=== PATIENT | male | born 1995 | race Hispanic/Latino ===

== ENCOUNTER 2019-08-13 16:04 | Emergency (ER) | payer OTHER, SELFPAY ==
[2019-08-13 16:10] VITALS: BP 119/71; PULSE 86; RESP 16; TEMP 36.8; O2SAT 100; BMI 22.6
[2019-08-13 16:34] VITALS: BP 138/63; PULSE 82; RESP 22; O2SAT 100
--- NOTE | 2019-08-13 16:45 | ED.SEIZURE ---
HPI - Seizure <Anneliese Rao DO - Last Filed: 08/13/19 20:10> General Chief Complaint: Seizure Stated Complaint: SEIZURES HEADACHE VOMITING Time Seen by Provider: 08/13/19 16:44 Source: patient Mode of arrival: Ambulatory Limitations: no limitations History of Present Illness HPI Narrative: 24-year-old male comes in with complaint of seizures, headache and vomiting. Patient states he thinks he had 1 maybe 2 seizures today or in less than 12-24 hours. Patient states he did bite his tongue he states he has had headache. No vision changes. He also has left shoulder pain. I states he has been groggy and felt off all day. He had vomiting this morning but no longer but feels nauseated. He denies any chest pain or shortness of breath. He denies any abdominal pain. No back or neck pain. No loss of bowel or bladder control. Patient has a history seizure disorder he does take his medications regularly although he did not take his morning medication or his evening medication. Patient states his last seizure was probably about a month ago. The head is medications increased about 2 3 months ago because of continued seizures. He does follow regularly with neurologist he denies other medical issues. He denies fevers, no recent respiratory infections. Related Data Home Medications Medication Instructions Recorded Confirmed buspirone 30 mg PO BID 08/13/19 08/13/19 lacosamide [Vimpat] 100 mg PO QPM 08/13/19 08/13/19 lacosamide [Vimpat] 200 mg PO DAILY 08/13/19 08/13/19 zonisamide 300 mg PO DAILY 08/13/19 08/13/19 Allergies Allergy/AdvReac Type Severity Reaction Status Date / Time No Known Drug Allergies Allergy Verified 08/13/19 16:10 Review of Systems <Anneliese Rao DO - Last Filed: 08/13/19 20:10> Review of Systems ROS Unobtainable: All systems reviewed & are unremarkable except as noted in HPI and below Patient History <Anneliese Rao DO - Last Filed: 08/13/19 20:10> Medical History (Updated 08/13/19 @ 19:49 by Anneliese Rao DO) Seizure disorder (Acute) Social History Smoking Status: Never smoker Smoking Status: Never smoker Substance Use Type: does not use Exam <Anneliese Rao DO - Last Filed: 08/13/19 20:10> Narrative Exam Narrative: GEN: well nourished, well appearing male, alert and oriented x 3, patient appears to be in mild distress. HEENT: Atraumatic, pupils are equal round reactive to light, extraocular movements are intact, nares are clear, TMs are clear with no fluid, there is no conjunctival pallor. Throat is clear without any exudates, erythema, tonsillar enlargement or uvular deviation patient has superficial laceration of his as well as tongue consistent with bite. HEART: Regular rate and rhythm without murmur, clicks, rubs. Pulses are equal in upper and lower extremities LUNGS:Lungs clear to auscultation, no wheezes, rales, crackles, chest moves symmetrically ABD:bowel sounds normal, soft, non-tender, no guarding, rebound, rigidity, no masses noted, no hepatosplenomegaly :No CVA tenderness MSCL: Non-tender, no muscle atrophy, muscles strength 5/5 upper and lower extremities, full range of motion NEURO:CN 2-12 intact, sensation normal, full range of motion. SKIN: No rash or skin changes. Initial Vital Signs Initial Vital Signs: Vital Signs Temperature 98.2 F 08/13/19 16:10 Pulse Rate 86 08/13/19 16:10 Respiratory Rate 16 08/13/19 16:10 Blood Pressure 119/71 08/13/19 16:10 Pulse Oximetry 100 08/13/19 16:10 <Tien Morfin DO - Last Filed: 08/14/19 00:41> Initial Vital Signs Initial Vital Signs: Vital Signs Temperature 98.2 F 08/13/19 16:10 Pulse Rate 86 08/13/19 16:10 Respiratory Rate 16 08/13/19 16:10 Blood Pressure 119/71 08/13/19 16:10 Pulse Oximetry 100 08/13/19 16:10 Course <Anneliese Rao DO - Last Filed: 08/13/19 20:10> Orders Ordered: ED Orders 08/13/19 16:47 CT head/brain wo con Stat 08/13/19 17:20 Basic Metabolic Panel Stat Complete Blood Count AUTO DIFF Stat Magnesium Stat Prolactin Stat 08/13/19 17:32 XR shoulder LT min 2V Stat 08/13/19 19:02 EKG-12 Lead Routine 08/13/19 19:54 XR elbow LT min 3V Stat XR shoulder LT 1V Stat 08/13/19 20:45 Urinalysis and Microscopic Stat Urine Drug Screen, Rapid Stat Discontinued Medications Sodium Chloride (Normal Saline 0.9%) 1,000 mls @ 1,000 mls/hr IV BOLUS PRN PRN Reason: Fluid replacement Last Infusion: 08/13/19 22:03 Dose: 0 mls/hr Documented by: Admin: 08/13/19 20:03 Dose: 1,000 mls/hr Documented by: AGUSTIN Ketorolac Tromethamine (Toradol) 30 mg IV NOW ONE Stop: 08/13/19 19:55 Last Admin: 08/13/19 20:02 Dose: 30 mg Documented by: AGUSTIN Vital Signs Vital signs: Vital Signs - 8 hr 08/13/19 18:46 08/13/19 22:08 Pulse Rate 90 72 Respiratory Rate 14 14 Blood Pressure 132/72 Blood Pressure [Right Arm] 130/70 Pulse Oximetry 99 99 <Tien Morfin, DO - Last Filed: 08/14/19 00:41> Orders Ordered: ED Orders 08/13/19 16:47 CT head/brain wo con Stat 08/13/19 17:20 Basic Metabolic Panel Stat Complete Blood Count AUTO DIFF Stat Magnesium Stat Prolactin Stat 08/13/19 17:32 XR shoulder LT min 2V Stat 08/13/19 19:02 EKG-12 Lead Routine 08/13/19 19:54 XR elbow LT min 3V Stat XR shoulder LT 1V Stat 08/13/19 20:45 Urinalysis and Microscopic Stat Urine Drug Screen, Rapid Stat Discontinued Medications Sodium Chloride (Normal Saline 0.9%) 1,000 mls @ 1,000 mls/hr IV BOLUS PRN PRN Reason: Fluid replacement Last Infusion: 08/13/19 22:03 Dose: 0 mls/hr Documented by: Admin: 08/13/19 20:03 Dose: 1,000 mls/hr Documented by: AGUSTIN Ketorolac Tromethamine (Toradol) 30 mg IV NOW ONE Stop: 02/24/20 19:55 Last Admin: 08/13/19 20:02 Dose: 30 mg Documented by: AGUSTIN Vital Signs Vital signs: Vital Signs - 8 hr 08/13/19 18:46 08/13/19 22:08 Pulse Rate 90 72 Respiratory Rate 14 14 Blood Pressure 132/72 Blood Pressure [Right Arm] 130/70 Pulse Oximetry 99 99 MDM - Seizure <Annelieseiam RaoDO - Last Filed: 08/13/19 20:10> Lab Data Attestation: I reviewed the patient's lab results. Result diagrams: 08/13/19 17:20 08/13/19 17:20 Labs: Lab Results 08/13/19 08/13/19 08/13/19 Range/Units 17:20 17:20 20:45 WBC 18.7 H (4.5-11.0) X10^3/uL RBC 4.78 (4.5-5.9) X10^6/uL Hgb 15.5 (13.5-17.5) g/dL Hct 44.2 (41-53) % MCV 92.3 (80-100) fL MCH 32.5 (26-34) PG MCHC 35.2 (30-36) % RDW 12.9 (11.6-14.8) % Plt Count 198 (150-400) X10^3/uL Neut % (Auto) 89.1 H (50-75) % Lymph % (Auto) 4.9 L (25-40) % [place] % (Auto) 5.8 (3-14) % Eos % (Auto) 0.0 L (2-4) % Baso % (Auto) 0.2 (0-2) % Neut # (Auto) 48766 H (4268-3210) /uL Lymph # (Auto) 900 L (9537-0516) /uL [place] # (Auto) 1100 H (0-900) /uL Eos # (Auto) 0 (0-450) /uL Baso # (Auto) 0 (0-100) /uL Sodium 139 (137-145) mmol/L Potassium 3.8 (3.4-5.1) mmol/L Chloride 102 (98-107) mmol/L Carbon Dioxide 21 L (22-32) mmol/L BUN 14 (9-20) mg/dL Creatinine 1.20 (0.66-1.25) mg/dL Estimated GFR > 60.0 (>60) mL/min BUN/Creatinine Ratio 11.7 (6-22) Glucose 141 H (70-100) mg/dL Calcium 10.1 (8.4-10.2) mg/dL Magnesium 2.1 (1.6-2.3) mg/dL Prolactin 9.9 (3.7-17.9) ng/mL Urine Color Yellow Urine Appearance Clear Urine pH 5.0 (4.5-8.0) Ur Specific [place] 1.020 (1.000-1.035) Urine Protein Negative (Negative) Urine Glucose (UA) Negative (Negative) g/dL Urine Ketones Trace H (NEGATIVE) Urine Occult Blood 1+ H (Negative) Urine Nitrate Negative (Negative) Urine Bilirubin Negative (NEGATIVE) Urine Urobilinogen 0.2 (0.2) E.U./dL Ur Leukocyte Esterase Negative (NEGATIVE) Urine RBC None seen (0-5/HPF) Urine WBC None seen (0-5/HPF) Uric Acid Crystals Many H (None) Other Crystals Ca sultafe Urine Bacteria None seen (None) Ur Culture Indicated? Cult not indicated U Opiates 300ng/mL cut (Negative) Ur Oxycodone Screen (Negative) Urine Methadone Screen (Negative) Ur Barbiturates Screen (Negative) U Tricyclic Antidepress (Negative) Ur Phencyclidine Scrn (Negative) Ur Amphetamines Screen (Negative) U Methamphetamines Scrn (Negative) Ur MDMA Scrn (Ecstasy) (Negative) U Benzodiazepines Scrn (Negative) Urine Cocaine Screen (Negative) U Marijuana (THC) Screen (Negative) 08/13/19 Range/Units 20:45 WBC (4.5-11.0) X10^3/uL RBC (4.5-5.9) X10^6/uL Hgb (13.5-17.5) g/dL Hct (41-53) % MCV (80-100) fL MCH (26-34) PG MCHC (30-36) % RDW (11.6-14.8) % Plt Count (150-400) X10^3/uL Neut % (Auto) (50-75) % Lymph % (Auto) (25-40) % [place] % (Auto) (3-14) % Eos % (Auto) (2-4) % Baso % (Auto) (0-2) % Neut # (Auto) (5626-8538) /uL Lymph # (Auto) (7123-9453) /uL [place] # (Auto) (0-900) /uL Eos # (Auto) (0-450) /uL Baso # (Auto) (0-100) /uL Sodium (137-145) mmol/L Potassium (3.4-5.1) mmol/L Chloride (98-107) mmol/L Carbon Dioxide (22-32) mmol/L BUN (9-20) mg/dL Creatinine (0.66-1.25) mg/dL Estimated GFR (>60) mL/min BUN/Creatinine Ratio (6-22) Glucose (70-100) mg/dL Calcium (8.4-10.2) mg/dL Magnesium (1.6-2.3) mg/dL Prolactin (3.7-17.9) ng/mL Urine Color Urine Appearance Urine pH (4.5-8.0) Ur Specific [place] (1.000-1.035) Urine Protein (Negative) Urine Glucose (UA) (Negative) g/dL Urine Ketones (NEGATIVE) Urine Occult Blood (Negative) Urine Nitrate (Negative) Urine Bilirubin (NEGATIVE) Urine Urobilinogen (0.2) E.U./dL Ur Leukocyte Esterase (NEGATIVE) Urine RBC (0-5/HPF) Urine WBC (0-5/HPF) Uric Acid Crystals (None) Other Crystals Urine Bacteria (None) Ur Culture Indicated? U Opiates 300ng/mL cut Negative (Negative) Ur Oxycodone Screen Negative (Negative) Urine Methadone Screen Negative (Negative) Ur Barbiturates Screen Negative (Negative) U Tricyclic Antidepress Negative (Negative) Ur Phencyclidine Scrn Negative (Negative) Ur Amphetamines Screen Negative (Negative) U Methamphetamines Scrn Negative (Negative) Ur MDMA Scrn (Ecstasy) Negative (Negative) U Benzodiazepines Scrn Negative (Negative) Urine Cocaine Screen Negative (Negative) U Marijuana (THC) Screen Negative (Negative) Imaging Data shoulder xray: Radiologist's Impression: [address] [address] XRay Report Signed Patient: RobertoNilay VMR#: [id number] : 1995Acct:[id number] Age/Sex: MDate of Service: 08/13/19 Loc: ED Accession Number: [id number] Procedure: XR shoulder LT min 2V Ordering Provider: Anneliese Rao D.O. PROCEDURE: XR SHOULDER LT MIN 2V INDICATIONS: left shoulder pain, s/p seizure TECHNIQUE: 3 views of the shoulder were acquired. COMPARISON: None. FINDINGS: Bones: Evaluation limited due to a suboptimal Y view. Posterior dislocation cannot be fully excluded. There is mild bony irregularity within the inferior aspect of the glenoid. Visualized ribs appear intact. Soft tissues: No suspicious soft tissue calcifications. IMPRESSION: 1. Slightly limited study due to patient's difficulty in positioning. If there is clinical suspicion for posterior shoulder dislocation, recommend an axillary view or repeat Y-view. 2. Mild irregularity along the inferior aspect the glenoid may reflect sequela of prior shoulder dislocation. If clinical concern persists, further evaluation may be obtained with cross-sectional imaging. Dictated by: Antonio Iraheta M.D. on 08/13/2019 at 19:38 Approved by: Antonio Iraheta M.D. on 08/13/2019 at 19:42 CT scan - head: Radiologist's Impression: [place] [address] CT Scan Report Signed Patient: Nilay Mejia R#: [id number] : 1995Acct:[id number] Age/Sex: MDate of Service: 08/13/19 Loc: ED Accession Number: [id number] Procedure: CT head/brain wo con Ordering Provider: Anneliese Rao D.O. PROCEDURE: CT HEAD/BRAIN WO CON INDICATIONS: seizure, has seizure history. TECHNIQUE: Noncontrast 4.5 mm thick angled axial sections acquired from the foramen magnum to the vertex, with coronal and sagittal reformats. For radiation dose reduction, the following was used: automated exposure control, adjustment of mA and/or kV according to patient size. COMPARISON: None. FINDINGS: Image quality: Excellent. CSF spaces: Basal cisterns are patent. No extra-axial fluid collections. Ventricles are normal in size and shape. Brain: No midline shift. No intracranial masses or hemorrhage. Schaffer-white matter interface is normal. Skull and face: Calvarium and visualized facial bones are intact, without suspicious lesions. Sinuses: Visualized sinuses and mastoids are clear. IMPRESSION: Allen seizure activity is not seen, no trauma from seizures found. Dictated by: Naman Mlaik M.D. on 08/13/2019 at 17:17 Approved by: Naman Malik M.D. on 08/13/2019 at 17:17 ECG Data Attestation: I personally reviewed and interpreted this ECG as follows: Prior ECG tracings: not available for review Interpretation: Sinus rhythm with sinus arrhythmia rate of 79 P are 170 QRS of 96 and QTC of 385. LVH. No priors for comparison MDM Narrative Medical decision making narrative: Patient's x-ray is equivocal clinically I do not any physical deformity but patient does not wish to move her shoulder nor his elbow at this point so elbow x-ray was added on with repeat view of the shoulder. Patient was given Toradol. Waiting for urine sample and patient was signed out to Dr. Morfin while this is pending. If patient is otherwise medically cleared discussed would likely benefit from a chat with his neurologist to see if his medication dosing needs to be changed but has been asymptomatic and does not seem to be in status epilepticus at this point. <Tien Morfin, DO - Last Filed: 08/14/19 00:41> Lab Data Labs: Lab Results 08/13/19 08/13/19 08/13/19 Range/Units 17:20 17:20 20:45 WBC 18.7 H (4.5-11.0) X10^3/uL RBC 4.78 (4.5-5.9) X10^6/uL Hgb 15.5 (13.5-17.5) g/dL Hct 44.2 (41-53) % MCV 92.3 (80-100) fL MCH 32.5 (26-34) PG MCHC 35.2 (30-36) % RDW 12.9 (11.6-14.8) % Plt Count 198 (150-400) X10^3/uL Neut % (Auto) 89.1 H (50-75) % Lymph % (Auto) 4.9 L (25-40) % [place] % (Auto) 5.8 (3-14) % Eos % (Auto) 0.0 L (2-4) % Baso % (Auto) 0.2 (0-2) % Neut # (Auto) 23866 H (9832-0448) /uL Lymph # (Auto) 900 L (0896-5192) /uL [place] # (Auto) 1100 H (0-900) /uL Eos # (Auto) 0 (0-450) /uL Baso # (Auto) 0 (0-100) /uL Sodium 139 (137-145) mmol/L Potassium 3.8 (3.4-5.1) mmol/L Chloride 102 (98-107) mmol/L Carbon Dioxide 21 L (22-32) mmol/L BUN 14 (9-20) mg/dL Creatinine 1.20 (0.66-1.25) mg/dL Estimated GFR > 60.0 (>60) mL/min BUN/Creatinine Ratio 11.7 (6-22) Glucose 141 H (70-100) mg/dL Calcium 10.1 (8.4-10.2) mg/dL Magnesium 2.1 (1.6-2.3) mg/dL Prolactin 9.9 (3.7-17.9) ng/mL Urine Color Yellow Urine Appearance Clear Urine pH 5.0 (4.5-8.0) Ur Specific [place] 1.020 (1.000-1.035) Urine Protein Negative (Negative) Urine Glucose (UA) Negative (Negative) g/dL Urine Ketones Trace H (NEGATIVE) Urine Occult Blood 1+ H (Negative) Urine Nitrate Negative (Negative) Urine Bilirubin Negative (NEGATIVE) Urine Urobilinogen 0.2 (0.2) E.U./dL Ur Leukocyte Esterase Negative (NEGATIVE) Urine RBC None seen (0-5/HPF) Urine WBC None seen (0-5/HPF) Uric Acid Crystals Many H (None) Other Crystals Ca sultafe Urine Bacteria None seen (None) Ur Culture Indicated? Cult not indicated U Opiates 300ng/mL cut (Negative) Ur Oxycodone Screen (Negative) Urine Methadone Screen (Negative) Ur Barbiturates Screen (Negative) U Tricyclic Antidepress (Negative) Ur Phencyclidine Scrn (Negative) Ur Amphetamines Screen (Negative) U Methamphetamines Scrn (Negative) Ur MDMA Scrn (Ecstasy) (Negative) U Benzodiazepines Scrn (Negative) Urine Cocaine Screen (Negative) U Marijuana (THC) Screen (Negative) 08/13/19 Range/Units 20:45 WBC (4.5-11.0) X10^3/uL RBC (4.5-5.9) X10^6/uL Hgb (13.5-17.5) g/dL Hct (41-53) % MCV (80-100) fL MCH (26-34) PG MCHC (30-36) % RDW (11.6-14.8) % Plt Count (150-400) X10^3/uL Neut % (Auto) (50-75) % Lymph % (Auto) (25-40) % [place] % (Auto) (3-14) % Eos % (Auto) (2-4) % Baso % (Auto) (0-2) % Neut # (Auto) (6085-8283) /uL Lymph # (Auto) (6590-4978) /uL [place] # (Auto) (0-900) /uL Eos # (Auto) (0-450) /uL Baso # (Auto) (0-100) /uL Sodium (137-145) mmol/L Potassium (3.4-5.1) mmol/L Chloride (98-107) mmol/L Carbon Dioxide (22-32) mmol/L BUN (9-20) mg/dL Creatinine (0.66-1.25) mg/dL Estimated GFR (>60) mL/min BUN/Creatinine Ratio (6-22) Glucose (70-100) mg/dL Calcium (8.4-10.2) mg/dL Magnesium (1.6-2.3) mg/dL Prolactin (3.7-17.9) ng/mL Urine Color Urine Appearance Urine pH (4.5-8.0) Ur Specific [place] (1.000-1.035) Urine Protein (Negative) Urine Glucose (UA) (Negative) g/dL Urine Ketones (NEGATIVE) Urine Occult Blood (Negative) Urine Nitrate (Negative) Urine Bilirubin (NEGATIVE) Urine Urobilinogen (0.2) E.U./dL Ur Leukocyte Esterase (NEGATIVE) Urine RBC (0-5/HPF) Urine WBC (0-5/HPF) Uric Acid Crystals (None) Other Crystals Urine Bacteria (None) Ur Culture Indicated? U Opiates 300ng/mL cut Negative (Negative) Ur Oxycodone Screen Negative (Negative) Urine Methadone Screen Negative (Negative) Ur Barbiturates Screen Negative (Negative) U Tricyclic Antidepress Negative (Negative) Ur Phencyclidine Scrn Negative (Negative) Ur Amphetamines Screen Negative (Negative) U Methamphetamines Scrn Negative (Negative) Ur MDMA Scrn (Ecstasy) Negative (Negative) U Benzodiazepines Scrn Negative (Negative) Urine Cocaine Screen Negative (Negative) U Marijuana (THC) Screen Negative (Negative) Imaging Data Extremity x-ray #1: Radiologist's Impression: [address] [address] XRay Report Signed Patient: Nilay Mejia R#: [id number] : 1995Acct:[id number] Age/Sex: 24 / MDate of Service: 08/13/19 Loc: ED Accession Number: [id number] Procedure: XR elbow LT min 3V Ordering Provider: Anneliese Rao D.O. PROCEDURE: XR ELBOW LT MIN 3V INDICATIONS: elbow pain TECHNIQUE: 3 views of the elbow were acquired. COMPARISON: None. FINDINGS: Bones: No fractures or dislocations. No suspicious bony lesions. Soft tissues: No elbow joint effusion. No suspicious soft tissue calcifications. IMPRESSION: 1. No fracture or dislocation. Dictated by: Antonio Iraheta M.D. on 08/13/2019 at 21:17 Approved by: Antonio rIaheta M.D. on 08/13/2019 at 21:17 Extremity x-ray #2: Radiologist's Impression: [address] [address] XRay Report Signed Patient: Nilay Mejia R#: [id number] : 1995Acct:[id number] Age/Sex: / MDate of Service: 08/13/19 Loc: ED Accession Number: [id number] Procedure: XR shoulder LT 1V Ordering Provider: Anneliese Rao D.O. PROCEDURE: XR SHOULDER LT 1V INDICATIONS: Shoulder pain and history of seizure. TECHNIQUE: Single Y view of the shoulder acquired. COMPARISON: [facility], CR, XR ELBOW LT MIN 3V, 08/13/2019, 19:59. [facility], CR, XR SHOULDER LT MIN 2V, 08/13/2019, 17:38. FINDINGS: Bones: No definite fractures or dislocations. No suspicious bony lesions. Visualized ribs appear intact. Soft tissues: No suspicious soft tissue calcifications. IMPRESSION: 1. No definite dislocation. Dictated by: Antonio Iraheta M.D. on 08/13/2019 at 21:13 Approved by: Antonio Iraheta M.D. on 08/13/2019 at 21:17 MDM Narrative Medical decision making narrative: Dr morfin: Received turned over from Dr rao. Patient has a history of seizures. He appears that he did have a seizure today. Patient is alert and oriented x3. Has a GCS of 15. I did review his labs. The time of turnover a repeat shoulder x-ray was pending along with a left elbow x-ray. His left elbow was unremarkable. The concern with the 1st shoulder x-ray was that he potentially had a posterior dislocation. A repeat single view why was performed which did not show any definitive dislocation. Patient was exquisitely tender with palpation and movement of his left shoulder however he states that this normally happens to him. He states that he feels like his left shoulder pain has happened in the past. I did talk with him about concerns about a potential dislocation however he stated that he did not want a CT. He stated that he would rather just have a sling and to allow the soreness to get better. Informed him that missing a potential dislocation could potentially cause long-term issues however he still would like to hold on any further workup. Patient states he is taking his medications. He was warned he should contact his neurologist tomorrow to discuss potentially changing any of his medications. He was given return precautions and follow-up instructions. He expressed understanding agreement. Discharge Plan Departure Patient Disposition: Home Clinical Impression: Seizure Discharge Date/Time: 08/13/19 22:11 Instructions: DI for Seizure Disorder -- Adult Activity Restrictions/Additional Instructions: No driving until you are cleared by either your neurologist or your primary provider. Continue all of your medications as directed. Return to the emergency department for any new or worsening symptoms Prescriptions: No Action Vimpat 200 mg Tablet 200 mg PO DAILY RF: 0 Vimpat 100 mg Tablet 100 mg PO QPM RF: 0 zonisamide 100 mg Capsule 300 mg PO DAILY RF: 0 buspirone 30 mg Tablet 30 mg PO BID RF: 0
[2019-08-13 17:31] LABS: Add Manual Diff / Slide Review NO; Basophils Absolute Auto 0 /uL (0-100); Basophils Percent Auto 0.2 % (0-2); Eosinophils Absolute Auto 0 /uL (0-450); Hematocrit 44.2 % (41-53); Hemoglobin 15.5 g/dL (13.5-17.5); Lymphocytes Absolute Auto 900 /uL (1100-4500); Lymphocytes Percent Auto 4.9 % (25-40); Mean Corpuscular HGB Conc 35.2 % (30-36); Mean Corpuscular Hemoglobin 32.5 PG (26-34); Mean Corpuscular Volume 92.3 fL (80-100); Monocytes Absolute Auto 1100 /uL (0-900); Monocytes Percent Auto 5.8 % (3-14); Neutrophils Absolute Auto 16700 /uL (1500-7000); Neutrophils Percent Auto 89.1 % (50-75); Platelet Count 198 X10^3/uL (150-400); Red Blood Cell Count 4.78 X10^6/uL (4.5-5.9); Red Cell Distribution Width 12.9 % (11.6-14.8); White Blood Cell Count 18.7 X10^3/uL (4.5-11.0)
--- NOTE | 2019-08-13 17:32 | DI.RAD.S_ITS ---
PROCEDURE: XR SHOULDER LT MIN 2V INDICATIONS: left shoulder pain, s/p seizure TECHNIQUE: 3 views of the shoulder were acquired. COMPARISON: None. FINDINGS: Bones: Evaluation limited due to a suboptimal Y view. Posterior dislocation cannot be fully excluded. There is mild bony irregularity within the inferior aspect of the glenoid. Visualized ribs appear intact. Soft tissues: No suspicious soft tissue calcifications. IMPRESSION: 1. Slightly limited study due to patient's difficulty in positioning. If there is clinical suspicion for posterior shoulder dislocation, recommend an axillary view or repeat Y-view. 2. Mild irregularity along the inferior aspect the glenoid may reflect sequela of prior shoulder dislocation. If clinical concern persists, further evaluation may be obtained with cross-sectional imaging. Dictated by: Antonio Iraheta M.D. on 08/13/2019 at 19:38 Approved by: Antonio Iraheta M.D. on 08/13/2019 at 19:42
[2019-08-13 17:40] LABS: BUN Creatinine Ratio 11.7 (6-22); Blood Urea Nitrogen 14 mg/dL (9-20); Calcium 10.1 mg/dL (8.4-10.2); Carbon Dioxide 21 mmol/L (22-32); Chloride 102 mmol/L (98-107); Estimated Glomerular Filt Rate > 60.0 mL/min (>60); Glucose 141 mg/dL (70-100); HEMOLYSIS < 15 (0-50); Magnesium 2.1 mg/dL (1.6-2.3); Potassium 3.8 mmol/L (3.4-5.1); Sodium 139 mmol/L (137-145)
[2019-08-13 17:57] LABS: Prolactin 9.9 ng/mL (3.7-17.9)
[2019-08-13 18:46] VITALS: BP 130/70; PULSE 90; RESP 14; O2SAT 99
--- NOTE | 2019-08-13 19:35 | PC.NURSE ---
patient remains postictal, sleepy, resting on stretcher with eyes closed. Easily arousable by voice. Denies needs at this time.
--- NOTE | 2019-08-13 19:54 | DI.RAD.S_ITS ---
PROCEDURE: XR SHOULDER LT 1V INDICATIONS: Shoulder pain and history of seizure. TECHNIQUE: Single Y view of the shoulder acquired. COMPARISON: [facility], CR, XR ELBOW LT MIN 3V, 08/13/2019, 19:59. [facility], CR, XR SHOULDER LT MIN 2V, 08/13/2019, 17:38. FINDINGS: Bones: No definite fractures or dislocations. No suspicious bony lesions. Visualized ribs appear intact. Soft tissues: No suspicious soft tissue calcifications. IMPRESSION: 1. No definite dislocation. Dictated by: Antonio Iraheta M.D. on 08/13/2019 at 21:13 Approved by: Antonio Iraheta M.D. on 08/13/2019 at 21:17
--- NOTE | 2019-08-13 19:54 | DI.RAD.S_ITS ---
PROCEDURE: XR ELBOW LT MIN 3V INDICATIONS: elbow pain TECHNIQUE: 3 views of the elbow were acquired. COMPARISON: None. FINDINGS: Bones: No fractures or dislocations. No suspicious bony lesions. Soft tissues: No elbow joint effusion. No suspicious soft tissue calcifications. IMPRESSION: 1. No fracture or dislocation. Dictated by: Antonio Iraheta M.D. on 08/13/2019 at 21:17 Approved by: Antonio Iraheta M.D. on 08/13/2019 at 21:17
[2019-08-13] MEDS: KETOROLAC 60 MG/2 ML VIAL 30 MG IV (20:02)
[2019-08-13] MEDS: SODIUM CHLORIDE 0.9% 1,000 ML 1000 ML IV (20:03)
[2019-08-13 20:52] LABS: Bacteria Urine None Seen; RBC Urine None Seen (0-5/HPF); WBC Urine None Seen (0-5/HPF)
[2019-08-13 20:55] LABS: Appearance Urine UA CLEAR; Bilirubin Urine UA NEGATIVE (NEGATIVE); Color Urine UA YELLOW; Glucose Urine UA NEGATIVE (Negative); Ketones Urine UA TRACE (NEGATIVE); Leukocyte Esterase Urine UA NEGATIVE (NEGATIVE); Nitrite Urine UA NEGATIVE (Negative); Occult Blood Urine UA 1+ (Negative); Protein Urine UA NEGATIVE (Negative); Urobilinogen Urine UA 0.2 E.U./dL (0.2)
[2019-08-13 21:01] LABS: UR Morphine/Opiate cutoff 300 Negative (Negative); Ur Creatinine Normal (Normal); Ur Specific Gravity Normal (Normal); Urine Amphetamines Negative (Negative); Urine Barbiturates Negative (Negative); Urine Benzodiazepines Negative (Negative); Urine Cocaine Negative (Negative); Urine MDMA Negative (Negative); Urine Methadone Negative (Negative); Urine Methamphetamines Negative (Negative); Urine Oxycodone Negative (Negative); Urine Phencyclidine Negative (Negative); Urine Tetrahydrocannabinol Negative (Negative); Urine Tricyclic Antidepressant Negative (Negative); Urine pH Normal (Normal)
[2019-08-13 21:16] LABS: Culture Indicated Urine Cult Not Indicated; Uric Acid Crystals Urine Many
[2019-08-13 21:17] LABS: Other Crystals Urine CA Sultafe
[2019-08-13 22:08] VITALS: BP 132/72; PULSE 72; RESP 14; O2SAT 99
== END 2019-08-13 22:11 | disposition home or self-care (01) ==
PROVIDERS: Emergency Medicine; Emergency Provider Emergency Medicine
DX: R56.9 Unspecified convulsions (principal)
CPT/HCPCS: 36415; 70450; 73020; 73030; 73080; 80048; 80305; 81001; 83735; 84146; 85025; 93005; 96361; 96374; 99284; 99285; J1885